=== PATIENT | female | born 2005 | race Two or more races ===

== ENCOUNTER 2024-04-17 22:40 | Emergency (ER) | payer OTHER ==
[~2024-04-17] VITALS: Ht 160 cm; Wt 52.2 kg
[2024-04-18] MEDS ORDERED: HYOSCYAMINE SULFATE 0.125 MG TAB.SUBL SL STA (00:37)
[2024-04-18] MEDS ORDERED: PROMETHAZINE HCL 50 MG/ML AMPUL IM STA (00:38)
[2024-04-18] MEDS ORDERED: FAMOTIDINE/PF 20 MG/2 ML VIAL IV PUSH STA (00:38)
[2024-04-18] MEDS ORDERED: 0.9 % SODIUM CHLORIDE 1,000 ML IV ONE ×2 (00:45→08:30)
[2024-04-18] MEDS ORDERED: PROMETHAZINE HCL 50 MG/ML AMPUL IM ONE ×2 (01:46→01:49)
[2024-04-18] MEDS ORDERED: HYOSCYAMINE SULFATE 0.125 MG TAB.SUBL ONE (01:46)
[2024-04-18] MEDS ORDERED: FAMOTIDINE/PF 20 MG/2 ML VIAL ONE (02:37)
[2024-04-18 03:37] LABS: HEMATOCRIT 45.3 % (36.0-45.00); HEMOGLOBIN 15.4 g/dL (12.0-15.00); MEAN CELL VOLUME 90.5 fL (80.00-100.00); MEAN CORPUSCULAR HEMOGLOBIN 30.8 pg (27.00-32.0); MEAN CORPUSCULAR HGB CONC 34.1 g/dl (32.0-36.0); PLATELET COUNT 333 K/uL (150-450); RED CELL DISTRIBUTION WIDTH 13.7 % (11.5-14.5)
[2024-04-18 03:48] LABS: CALCIUM 9.5 mg/dL (8.5-10.1); CREATININE SERUM 0.82 mg/dL (0.55-1.02); GFR 89.81; POTASSIUM 3.87 mEq/L (3.5-5.1)
[2024-04-18 08:48] LABS: PH,URINE 5.5 (5.0-8.0); URINE APPEARANCE Clear; URINE BILIRRUBIN Negative (NEGATIVE); URINE BLOOD Moderate; URINE COLOR Yellow; URINE LEUKOCYTE Negative; URINE NITRATE Negative; URINE PROTEIN Trace (NEGATIVE); URINE UROBILINOGEN 0.2 E.U./dl
[2024-04-18 08:49] LABS: URINE BACTERIA 118.7 uL (0.0-1933); URINE EPITHELIAL CELLS 35.1 uL (0.0-38.8); URINE RBC 9.7 uL (0.0-20.8); URINE WBC 6.3 uL (0.0-23.2)
[2024-04-18] MEDS ORDERED: ONDANSETRON HCL 2 MG/ML VIAL IV SCH (09:00)
[2024-04-18 09:12] LABS: URINE GLUCOSE 100 MG/DL (NEGATIVE); URINE KETONE 80 (NEGATIVE)
== END 2024-04-18 11:46 | disposition home or self-care (01) ==
LOC: EMR PED 22:42 → ER 22:42 → EMR PED 04-18 00:35
PROVIDERS: General Practice
DX: R11.10 Vomiting, unspecified (principal)